=== PATIENT | female | born 1960 | race Two or more races ===

== ENCOUNTER → 2016-09-25 | Outpatient (CLI) | payer MEDICAID, OTHER ==
[~2016-09-25] MED LIST: ABIL30TA2 PO; ASPI81CH14 CHEW; BENZ0.5T PO; BUPR150CR PO; CALC1CHW30 CHEW; CHOL1TAB42 PO; CLON1 PO; FERR1TAB36 PO; GABA600T PO; LEVO.075 PO; LOXA10CA PO; LOXA50CA PO; MOBI7.5T PO; OMEP20TA PO
--- NOTE | 2016-09-25 17:01 | EKG ---
Date Performed: 09/25/2016 Time Performed: 12:51:25 PTAGE: 56 years EKG: Sinus rhythm NORMAL ECG PREVIOUS TRACING : 06/20/2014 15.46 Since previous tracing, no significant change noted DOCTOR: Marko Muse Interpretating Date/Time 09/25/2016 17:00:36
== END ==
LOC: HCAV 12:26 → EDSTATUS 10-29 11:03
PROVIDERS: ATTEND Psychiatry & Neurology Child & Adolescent Psychiatry
DX: F25.0 Schizoaffective disorder, bipolar type (principal); F41.1 Generalized anxiety disorder
CPT/HCPCS: 93005